=== PATIENT | male | born 1965 ===

== ENCOUNTER 2020-07-19 12:24 | Day surgery (SDC) | payer MEDICAID, OTHER ==
[~2020-07-19 12:24] MED LIST: Acetaminophen 1,000 MG in Premix Bag 1 BAG IV ONE; Lactated Ringers 1,000 ML IV SCH; Pregabalin 75 MG Cap PO SCH; ceFAZolin 2 GM in Premix Bag 1 BAG IV ONE
[2020-07-19] MEDS ORDERED: Dexamethasone 4 MG/ML 5 ML MDV ONE (12:44)
[2020-07-19] MEDS ORDERED: Lidocaine 2% 5 ML SDV ONE (12:44)
[2020-07-19] MEDS ORDERED: Ondansetron 4 MG/2 ML SDV ONE (12:44)
[2020-07-19] MEDS ORDERED: Midazolam 1 MG/ML 2 ML SDV ONE (12:44)
[2020-07-19] MEDS ORDERED: Ketorolac 30 MG/ML SDV ONE (12:44)
[2020-07-19] MEDS ORDERED: HYDROmorphone 2 MG/ML Syringe ONE (12:44)
[2020-07-19] MEDS ORDERED: Propofol 200 MG/20 ML SDV ONE (12:44)
[2020-07-19] MEDS ORDERED: fentaNYL 250 MCG/5 ML SDV ONE (12:45)
--- NOTE | 2020-07-19 12:45 | PCM.PREANE ---
Preanesthetic Assessment - Anesthesia/Transfusion/Family Hx Anesthesia History: Prior Anesthesia Without Reaction Family History of Anesthesia Reaction: No () Transfusion History: No Prior Transfusion(s) - Review of Systems General: No Symptoms Pulmonary: No Symptoms Cardiovascular: No Symptoms Gastrointestinal: No Symptoms Neurological: No Symptoms Other: Reports: None - Physical Assessment NPO Status Date: 07/19/20 NPO Status Time: 00:01 ( ) Height: 5 ft 8 in Weight: 226 lb ASA Class: 2 Mental Status: Alert & Oriented x3 Airway Class: Mallampati = 2 Dentition: Reports: Normal Dentition, Dentures ROM/Head Extension: Limited/Partial Lungs: Clear to Auscultation, Normal Respiratory Effort Cardiovascular: Regular Rate, Regular Rhythm - Allergies Allergies/Adverse Reactions: Allergies Allergy/AdvReac Type Severity Reaction Status Date / Time Penicillins Allergy Cannot Verified 07/13/20 10:24 Remember - Anesthesia Plan Pre-Op Medication Ordered: None - Acknowledgements Anesthesia Type Planned: General Anesthesia Pt an Appropriate Candidate for the Planned Anesthesia: Yes Alternatives and Risks of Anesthesia Discussed w Pt/Guardian: Yes Pt/Guardian Understands and Agrees with Anesthesia Plan: Yes Additional Comments: npo after mn no cv problems tob 1 ppd etoh none obesity bmi 34 denies current THC use par no questions PreAnesthesia Questionnaire HEENT History: Reports: Other (See Below) Other HEENT History: has upper and lower dentures Cardiovascular History: Reports: None Respiratory History: Reports: None Gastrointestinal History: Reports: None Genitourinary History: Reports: None Musculoskeletal History: Reports: None Neurological History: Reports: None Psychiatric History: Reports: None Endocrine/Metabolic History: Reports: Obesity/BMI 30+ Hematologic History: Reports: None Immunologic History: Reports: None Oncologic (Cancer) History: Reports: None Dermatologic History: Reports: None - Past Surgical History Head Surgeries/Procedures: Reports: None HEENT Surgical History: Reports: None Cardiovascular Surgical History: Reports: None Respiratory Surgical History: Reports: None GI Surgical History: Reports: Hernia, Inguinal Other GI Surgeries/Procedures: previous right and left inguinal hernia repairs Male Surgical History: Reports: None Endocrine Surgical History: Reports: None Neurological Surgical History: Reports: None Musculoskeletal Surgical History: Reports: Shoulder Surgery Other Musculoskeletal Surgeries/Procedures:: RTCR Oncologic Surgical History: Reports: None Dermatological Surgical History: Reports: None - SUBSTANCE USE Tobacco Use Status *Q: Current Every Day Tobacco User Tobacco Use Within Last Twelve Months: Cigarettes Recreational Drug Use History: Yes - HOME MEDS Home Medications: Home Meds . [No Known Home Meds] 07/13/20 [History] - CURRENT (IN HOUSE) MEDS Current Meds: Current Medications Lactated Ringer's (Ringers, Lactated) 1,000 mls @ 125 mls/hr IV ASDIRECTED JO ANN Pregabalin (Pregabalin 75 Mg Cap) 150 mg PO DAILY JO ANN Discontinued Medications Cefazolin Sodium/Dextrose 2 gm (/ Premix) 50 mls @ 100 mls/hr IV ONETIME ONE Stop: 07/18/20 10:54 Acetaminophen 1,000 mg/ Premix 100 mls @ 400 mls/hr IV NOW ONE Stop: 07/19/20 05:14 Acetaminophen (Ofirmev 1000 Mg/100 Ml) Confirm Administered Dose 100 mls @ as directed .ROUTE .STK-MED ONE Stop: 07/19/20 11:10
[2020-07-19] MEDS ORDERED: Bupivacaine 0.5% 30 ML SDV ONE (12:46)
[2020-07-19] MEDS ORDERED: Octyl 2-Cyanoacrylate 1 Tube ONE (12:46)
[2020-07-19] MEDS ORDERED: Sugammadex Sodium 200 MG/2 ML VIAL ONE (12:47)
--- NOTE | 2020-07-19 14:48 | PCM.OPNOTE ---
- General Post-Op/Procedure Note Date of Surgery/Procedure: 07/19/20 Operative Procedure(s): re-redo left inguinal hernia Findings: left inguinal hernia dictation number [id number] Pre Op Diagnosis: re-recurrent left inguinal hernia Post-Op Diagnosis: re-recurrent left inguinal hernia Primary Surgeon: Rai Farley Secondary Surgeon: Romy Acosta Pathology: none EBL in mLs: 15 Complications: None Condition: Good
[2020-07-19] MEDS ORDERED: fentaNYL 100 MCG/2 ML SDV IVPUSH PRN (14:58)
--- NOTE | 2020-07-19 15:33 | PCM.POSTAN ---
POST ANESTHESIA ASSESSMENT - MENTAL STATUS Mental Status: Alert, Oriented - VITAL SIGNS Vital Signs: Last Vital Signs Temp 36.6 C 07/19/20 14:47 Pulse 90 07/19/20 15:22 Resp 14 07/19/20 15:22 BP 120/75 07/19/20 15:22 Pulse Ox 96 07/19/20 15:22 - RESPIRATORY Respiratory Status: Respiratory Rate WNL, Airway Patent, O2 Saturation Stable, Supplemental Oxygen (1L NC) - CARDIOVASCULAR CV Status: Pulse Rate WNL, Blood Pressure Stable - GASTROINTESTINAL GI Status: No Symptoms - PAIN Pain Score: 0 (Denies pain) - POST OP HYDRATION Hydration Status: Adequate & Stable
--- NOTE | 2020-07-19 16:02 | PCM48HPAN ---
Post Anesthesia Note - EVALUATION WITHIN 48HRS OF ANESTHETIC Vital Signs in Normal Range: Yes Patient Participated in Evaluation: Yes Respiratory Function Stable: Yes Airway Patent: Yes Cardiovascular Function Stable: Yes Hydration Status Stable: Yes Pain Control Satisfactory: Yes (Denies pain.) Nausea and Vomiting Control Satisfactory: Yes (Taking PO well, no nausea.) Mental Status Recovered: Yes Vital Signs: Last Vital Signs Temp 36.6 C 07/19/20 14:47 Pulse 90 07/19/20 15:22 Resp 14 07/19/20 15:22 BP 120/75 07/19/20 15:22 Pulse Ox 96 07/19/20 15:22 - COMMENTS/OBSERVATIONS Free Text/Narrative:: Okay to discharge from anesthesia care. Alert/oriented, chatting, VSS. RA, SAT WNL.
--- NOTE | 2020-07-20 08:06 | OR ---
SURGEON: NANCY TORRES MD DATE OF PROCEDURE: 07/19/2020 PREOPERATIVE DIAGNOSIS: Recurrent left inguinal hernia. POSTOPERATIVE DIAGNOSIS: Recurrent left inguinal hernia. PROCEDURE PERFORMED: Open repair of the left recurrent inguinal hernia. PRIMARY SURGEON: Nancy Torres MD SECONDARY SURGEON: Romy Acosta MD ESTIMATED BLOOD LOSS: 15 mL. SPECIMENS: None. COMPLICATIONS: None. REASON FOR PROCEDURE: The patient is a pleasant 55-year-old gentleman who had a recurrent left inguinal hernia. The patient had a laparoscopic left inguinal hernia repair, which then recurred about a month afterwards and had mesh and plug placed on the left side. This hernia recurred about a year afterwards. It has been about a total of 2 years since his last surgery. The patient says it is causing him a bit more discomfort. He has a bulge and would like to have it repaired. Again, I went over with the patient again risks, goals, and alternatives of procedure. Risks include but not limited to bleeding, infection, injury to underlying structures such as spermatic cord or bowel, or testicle loss or damage and recurrence. I did go over with the patient that this is the third time repairing it and has a higher chance of recurrence and infection, especially since he continues to smoke. The patient understands. I also noted to patient that there is a little rigid kind of feel from scar tissue from his prior surgery. This would still be there after the surgery. The patient understands. OPERATION NARRATIVE: The patient was brought back to the OR. A Machado catheter was placed. Preoperative antibiotics were given and SCDs were placed, and anesthesia was provided by the anesthesia team. After time-out was performed, incision was made over his left ankle ligament using his previous incision site. Incision was carefully carried down. There was scar tissue. Did free up what looked to be the external oblique and identified external ring. External oblique was then opened carefully with Metzenbaum and underlying spinal cord was identified. The patient did have recurrence of hernia. Looks like it kind of worked between the mesh had kind of coiled off the medial edge of the pubic tubercle and the hernia sac came between this opening and plug. The hernia sac was gently dissected off the pubic tubercle. A Garland drain was placed around it. The hernia sac was then gently dissected away from the spermatic cord. This did take some time because of the scarring from his previous surgeries, but the hernia sac was freed up. It was then reduced into the abdominal cavity. Now, the previously placed of the edge was then tacked down again to the pubic tubercle. This was done with several interrupted 0 Prolenes. I did close nicely making sure not to put too much tension on the external ring of spermatic cord. The area was again injected with some local in the fascia. Now, the external oblique was again reapproximated with some 3-0 Vicryl in a running stitch again making sure not to close down on the external spermatic cord too tight. The subcutaneous tissue was then closed with interrupted 0 Vicryl. The skin was then closed with 4-0 Monocryl and Dermabond. At the end of case, sponge and needle counts were correct and both testicles in the scrotum. The patient was transferred to recovery room in stable condition. CHERI NDIAYE /[id number]
== END 2020-07-19 16:20 | disposition home or self-care (01) ==
LOC: MW.SDS 12:24
PROVIDERS: ATTEND Surgery
DX: K40.91 Unilateral inguinal hernia, without obstruction or gangrene, recurrent (principal); F17.210 Nicotine dependence, cigarettes, uncomplicated; E66.9 Obesity, unspecified; Z88.0 Allergy status to penicillin; Z98.890 Other specified postprocedural states; Z68.34 Body mass index [BMI] 34.0-34.9, adult
CPT/HCPCS: A9270-GY; J0131; J0690; J1100; J1170; J1885; J2250; J2405; J2704; J3010; J3490; J7120